=== PATIENT | male | born 1940 | race Caucasian/White ===

== ENCOUNTER 2022-01-19 11:04 | Emergency (ER) | payer MEDICARE, OTHER ==
[2022-01-19] MEDS ORDERED: COLACE 100MG C100 MG PO (12:52)
== END 2022-01-19 13:21 | disposition home or self-care (01) ==
LOC: ER1 11:04
DX: K40.90 Unilateral inguinal hernia, without obstruction or gangrene, not specified as recurrent (principal); I10 Essential (primary) hypertension
CPT/HCPCS: 96374; 96375; 99283; J2270; J2405

== ENCOUNTER → 2022-03-09 | Outpatient (CLI) | payer MEDICARE, OTHER ==
[~2022-03-09] MED LIST: ASPIRIN325 MG PO; COLACE 100MG C100 MG PO; HYDROCHLOROTHIA25 MG PO; LISINOPRIL40 MG PO; ZOCOR40 MG PO
[2022-03-09 11:58] LABS: BUN/CREATININE RATIO 17 (0-10)
[2022-03-09 12:13] LABS: HEMOGLOBIN 12.9 gm/dl (14.0-17.5); RED BLOOD COUNT 3.99 M/UL (4.20-5.50); WHITE BLOOD COUNT 6.9 K/UL (4.5-11.0)
== END ==
LOC: OPSV2 10:00
PROVIDERS: Anesthesiology
DX: Z01.818 Encounter for other preprocedural examination (principal)
CPT/HCPCS: 36415; 80048; 85025; 93005

== ENCOUNTER → 2022-03-17 | Day surgery (SDC) | payer MEDICARE, OTHER | END | disposition home or self-care (01) | LOC: OR 05:52 | DX: K42.9 Umbilical hernia without obstruction or gangrene (principal); K40.90 Unilateral inguinal hernia, without obstruction or gangrene, not specified as recurrent; I10 Essential (primary) hypertension; E78.5 Hyperlipidemia, unspecified; K21.9 Gastro-esophageal reflux disease without esophagitis; Z87.891 Personal history of nicotine dependence; Z79.82 Long term (current) use of aspirin; Z79.899 Other long term (current) drug therapy | CPT/HCPCS: C1781; J0690; J1100; J2001; J2405; J2704; J3010 ==